=== PATIENT | male | born 1990 | race Caucasian/White ===

== ENCOUNTER 2016-11-07 22:53 | Emergency (ER) | payer MEDICAID ==
[2016-11-07 22:53] VITALS: BMI 31.7
[2016-11-07 23:08] VITALS: BP 158/88; PULSE 96; RESP 16; TEMP 98.5; O2SAT 100
[2016-11-07] MEDS ORDERED: Tmp-Smz 800 mg-160 mg DS Tab PO STA (23:13)
--- NOTE | 2016-11-07 23:15 | C.PDOC ---
History Of Present Illness 26 y/o male presents to the ED for evaluation of an abscess on his left foot which has been occurring intermittently for around 2 months. Patient states he usually drains the area by himself at home and last drainage was done around 2 weeks ago. He notes increased swelling to the area for the past 2 days and presents for further evaluation. Patient denies fever, chills, recent trauma/ injury to affected area. Time Seen by Provider: 11/07/16 23:05 Chief Complaint (Nursing): Abnormal Skin Integrity History Per: Patient History/Exam Limitations: no limitations Onset/Duration Of Symptoms: Days, Intermittent Episodes Current Symptoms Are (Timing): Still Present Location Of Injury: Left: Foot Quality Of Symptoms: Swollen Additional History Per: Patient Past Medical History Reviewed: Historical Data, Nursing Documentation, Vital Signs Vital Signs: Last Vital Signs Temp 98.5 F 11/07/16 23:06 Pulse 96 H 11/07/16 23:06 Resp 16 11/07/16 23:06 BP 158/88 H 11/07/16 23:06 Pulse Ox 100 11/08/16 01:02 - Medical History PMH: Chronic Kidney Disease (right kidney removed) Surgical History: No Surg Hx Family History: States: Unknown Family Hx - Social History Hx Alcohol Use: No Hx Substance Use: Yes (marijuana) - Immunization History Hx Tetanus Toxoid Vaccination: No Hx Influenza Vaccination: No Hx Pneumococcal Vaccination: No Review Of Systems Constitutional: Negative for: Fever, Chills Skin: Positive for: Other (+abscess to left foot with swelling ) Physical Exam - Physical Exam Appears: Non-toxic, No Acute Distress Skin: Normal Color, Warm, Dry Eye(s): bilateral: Normal Inspection Oral Mucosa: Moist Neck: Supple Extremity: Normal ROM, Tenderness (tender, fluctuant mass to lateral distal left foot, between 4th and 5th digits ), No Calf Tenderness, Capillary Refill ( less than 2 seconds ), No Deformity Pulses: Left Dorsalis Pedis: Normal Neurological/Psych: Oriented x3, Normal Speech, Normal Cognition Gait: Steady ED Course And Treatment O2 Sat by Pulse Oximetry: 100 (on RA) Pulse Ox Interpretation: Normal Medical Decision Making Medical Decision Making: Impression: 26y/o male with left foot abscess Plan: * Bactrim PO * reassess and disposition Progress: Patient received Bactrim PO. Fluctuant mass to lateral distal left foot, between 4th and 5th digits. Area cleaned with betadine solution. Incision made with sterile 18 gauge needle. Copious amounts of purulent discharge expressed and drained. Would culture obtained. Sterile packing placed in incision. Wound dressed with dry, sterile dressing. Patient tolerated well. On reassessment, patient is resting comfortably, showing no signs of distress, and reports an improvement in his symptoms. Patient is stable for discharge with Rx and is given proper wound care instructions. Disposition Counseled Patient/Family Regarding: Diagnosis, Need For Followup, Rx Given - Disposition Disposition: HOME/ ROUTINE Disposition Time: 23:15 Condition: GOOD Additional Instructions: Keep area clean and dry. May wash gently with soap and water, do not use alcohol or iodine solution. Change dressing 1-2 times daily. Take antibiotic twice daily and be sure to finish taking all of antibiotic. Prescriptions: Sulfamethoxazole/Trimethoprim [Bactrim DS 800 mg-160 mg] 1 tab PO BID #14 tab Instructions: Abscess (ED) Forms: [facility] (Sinhala) - POA Present On Arrival: None - Clinical Impression Clinical Impression: Foot abscess, left - PA / DOLL SURGEON / Resident Statement MD/DO has reviewed & agrees with the documentation as recorded. - Scribe Statement The provider has reviewed the documentation as recorded by the Scribe (Fiona Collado) All medical record entries made by the Scribe were at my direction and personally dictated by me. I have reviewed the chart and agree that the record accurately reflects my personal performance of the history, physical exam, medical decision making, and the department course for this patient. I have also personally directed, reviewed, and agree with the discharge instructions and disposition.
[2016-11-07] MEDS ORDERED: Tmp-Smz 800 mg-160 mg DS Tab ONE (23:18)
== END 2016-11-07 23:36 | disposition home or self-care (01) ==
LOC: C.ER 22:53
DX: L02.612 Cutaneous abscess of left foot (principal); B96.89 Other specified bacterial agents as the cause of diseases classified elsewhere

== ENCOUNTER 2017-01-19 17:10 | Emergency (ER) | payer MEDICAID ==
[2017-01-19 17:10] VITALS: BMI 31.7
[2017-01-19 17:29] VITALS: RESP 20
[2017-01-19] MEDS ORDERED: Sodium Chloride 0.9% 1,000 ML IV ONE (18:16)
--- NOTE | 2017-01-19 18:23 | C.PDOC ---
History Of Present Illness 26 y/o male presents to ED with complaints of productive cough, fever, diarrhea , body aches, headache and chest pain worse when coughing for 3 days. Patient states he vomited 2 times today and admits to sick contacts. Patient denies dysuria, abdominal pain, back pain or any other complaints at this time. Time Seen by Provider: 01/19/17 17:27 Chief Complaint (Nursing): Abdominal Pain History Per: Patient History/Exam Limitations: no limitations Onset/Duration Of Symptoms: Days Current Symptoms Are (Timing): Still Present Associated Symptoms: Fever, Cough, Vomiting, Diarrhea. denies: Chills Past Medical History Reviewed: Historical Data, Nursing Documentation, Vital Signs Vital Signs: Last Vital Signs Temp 102.6 F H 01/19/17 17:24 Pulse 104 H 01/19/17 17:24 Resp 20 01/19/17 17:24 BP 135/79 01/19/17 17:24 Pulse Ox 97 01/19/17 18:36 - Medical History PMH: Chronic Kidney Disease (Right kidney removal) Surgical History: No Surg Hx Family History: States: No Known Family Hx - Social History Hx Alcohol Use: Yes Hx Substance Use: No - Immunization History Hx Tetanus Toxoid Vaccination: No Hx Influenza Vaccination: No Hx Pneumococcal Vaccination: No Review Of Systems Except As Marked, All Systems Reviewed And Found Negative. Constitutional: Positive for: Fever Cardiovascular: Positive for: Chest Pain Respiratory: Positive for: Cough Gastrointestinal: Positive for: Vomiting, Diarrhea Neurological: Positive for: Headache Physical Exam - Physical Exam Appears: Non-toxic, No Acute Distress, Other (Ill) Skin: Normal Color, Warm, Dry, No Rash Head: Atraumatic, Normacephalic Eye(s): bilateral: Normal Inspection Oral Mucosa: Moist Neck: Normal ROM, Supple Chest: Symmetrical Cardiovascular: Rhythm Regular Respiratory: Normal Breath Sounds, No Rales, No Rhonchi, No Wheezing Gastrointestinal/Abdominal: Soft, No Tenderness, No Guarding, No Rebound Back: No CVA Tenderness Extremity: Normal ROM, Capillary Refill (<2 seconds) Neurological/Psych: Oriented x3, Normal Motor, Normal Sensation ED Course And Treatment - Laboratory Results Result Diagrams: 01/19/17 18:59 O2 Sat by Pulse Oximetry: 97 (RA) Pulse Ox Interpretation: Normal Disposition - Disposition Disposition Time: 19:22 Condition: STABLE Forms: [facility] ([place]) - Clinical Impression Clinical Impression: Viral syndrome - Scribe Statement The provider has reviewed the documentation as recorded by the Scribe Yulia Hodges All medical record entries made by the Everettibe were at my direction and personally dictated by me. I have reviewed the chart and agree that the record accurately reflects my personal performance of the history, physical exam, medical decision making, and the department course for this patient. I have also personally directed, reviewed, and agree with the discharge instructions and disposition. Physician Patient Turnover Patient Signed Over To: Lawrence Nava DO Handoff Comments: fever, pending labs
[2017-01-19 19:07] LABS: BASO % 0.3 % (0.0-2.0); EOS % 0.1 % (0.0-4.0); HEMATOCRIT 45.1 % (35.0-51.0); LYMPH # 1.6 K/uL (1.0-4.3); LYMPH % 13.8 % (20.0-40.0); MEAN CELL VOLUME 77.1 fL (80.0-94.0); MEAN CORPUSCULAR HEMOGLOBIN 26.4 pg (27.0-31.0); MEAN CORPUSCULAR HGB CONC 34.3 g/dL (33.0-37.0); MEAN PLATELET VOLUME 9.2 fL (7.2-11.7); MONO # 1.8 K/uL (0.0-0.8); MONO % 16.4 % (0.0-10.0); NRBC % 0.3 % (0.0-2.0); RED CELL DISTRIBUTION WIDTH 14.1 % (11.5-14.5); WHITE BLOOD COUNT 11.3 K/uL (4.8-10.8)
[2017-01-19 19:17] LABS: CHLORIDE 96 mmol/L (98-107)
[2017-01-19 19:18] LABS: POTASSIUM 4.3 mmol/L (3.6-5.2); SODIUM 131 mmol/L (132-148)
[2017-01-19 19:19] LABS: RBC URINE 3 /hpf (0-3); URINE BACTERIA FEW (<OCC); URINE BILIRUBIN NEGATIVE (NEGATIVE); URINE BLOOD NEGATIVE (NEGATIVE); URINE COLOR Yellow (YELLOW); URINE GLUCOSE (UA) NORMAL (Normal); URINE KETONE NEGATIVE (NEGATIVE); URINE LEUKOCYTE ESTERASE NEG Leu/uL (Negative); URINE PROTEIN 1+ mg/dL (NEGATIVE); WBC URINE < 1 /hpf (0-5)
[2017-01-19 19:20] LABS: ALB/GLOB RATIO 1.3 (1.0-2.1); ALKALINE PHOSPHATASE 89 U/L (38-126); ALT/SGPT 43 U/L (21-72); AST/SGOT 42 U/L (17-59); BILIRUBIN,TOTAL 0.9 mg/dL (0.2-1.3); CARBON DIOXIDE 23 mmol/L (22-30); GFR AFRICAN-AMERICAN > 60; TOTAL PROTEIN 7.8 g/dL (6.3-8.3)
[2017-01-19 19:21] LABS: BLOOD UREA NITROGEN 10 mg/dL (9-20); GLUCOSE,RANDOM 89 mg/dL (75-110)
[2017-01-19] MEDS ORDERED: Sodium Chloride 0.9% 1,000 ML ONE (19:28)
[2017-01-19 20:49] VITALS: PULSE 78; TEMP 99
[2017-01-19 21:09] VITALS: BP 127/72; O2SAT 98
== END 2017-01-19 21:08 | disposition home or self-care (01) ==
LOC: C.ER 17:10
DX: B34.9 Viral infection, unspecified (principal)
CPT/HCPCS: 80053; 81001; 85025; 87804; 96361; 96374; 96375; 99285; J2405; J7040